=== PATIENT | female | born 1955 | race Caucasian/White ===

== ENCOUNTER 2018-01-06 08:12 | Day surgery (SDC) | payer SELFPAY ==
[~2018-01-06] VITALS: Ht 162.6 cm; Wt 78.5 kg
[~2018-01-06 08:12] MED LIST: ATORVASTATIN CA10 MG PO; ESTRADIOL0.5 MG PO; [UNRECOGNIZED DRUG - OTHER] PO
[2018-01-06 10:39] VITALS: BP 117/68
== END 2018-01-06 10:50 | disposition home or self-care (01) | DRG 392 ==
LOC: ENDO 08:12
PROVIDERS: ATTEND Surgery
PROC: 0DJD8ZZ Inspection of Lower Intestinal Tract, Via Natural or Artificial Opening Endoscopic (ICD-10-PCS; principal; 2018-01-06)
DX: R10.32 Left lower quadrant pain (principal); E78.5 Hyperlipidemia, unspecified